=== PATIENT | male | born 1955 | race Caucasian/White ===

== ENCOUNTER 2017-04-07 16:36 | Observation (INO) ==
[2017-04-07] MEDS ORDERED: MAGNESIUM SULF RIDER 4 GM in PREMIX 1 EACH IV PRN (17:29)
[2017-04-07] MEDS ORDERED: ACETAMINOPHEN 325 MG TABLET PO PRN (17:29)
[2017-04-07] MEDS ORDERED: MAGNESIUM SULF RIDER 2 GM in PREMIX 1 EACH IV PRN (17:29)
[2017-04-07] MEDS ORDERED: ONDANSETRON 4 MG/2 ML VIAL IV PRN (17:29)
--- NOTE | 2017-04-07 17:33 | Emergency Department Note ---
Rekha Cool Hilary, am scribing for, and in the presence of, Farzad Price MD 17:23. Dee Cool Phillip K, MD, personally performed the services described in this documentation, ascribed by Padma Da Silva in my presence, and it is both accurate and complete [id number] . Arrival - Arrival Chief Complaint: Chest Pain Stated Complaint: TRANSFER FROM [facility] CP ED Nursing Triage Note: PT TRANSFERRED FROM [facility] FOR EVALUATION OF POSSIBLE TIA. PT PRESENTED WITH CHEST PAIN AND SOB. WHILE IN ER AT [facility] PT HAD EPISODE OF CONFUSION AND VOMITING. CT BRAIN WAS DONE. PT IS CURRENTLY AAO WITH NO COMPLAINTS. Mode of Arrival: Stretcher Limitations: No Limitations Source: Patient, RN Notes Reviewed - History of Present Illness HPI Narrative: Pt is a 62 y/o male brought into the ED via EMS from [facility] ER for evaluation of possible TIA. Per EMS pt went to [facility] with c/o chest pain and SOB and then while there had a episode of confusion and vomiting. Pt confirms nausea, SOB, vomiting, confusion, dizziness, midsternal tightness in chest, fever, diaphoresis but denies cough. Pt has a PMHx of GERD. No other complaints or problems stated in the ED. Onset (ago): hour(s) Consistency: now resolved Allergies/Adverse Reactions: Allergies Allergy/AdvReac Type Severity Reaction Status Date / Time No Known Allergies Allergy Verified 04/07/17 16:50 Home Medications: Home Medications Medication Instructions Recorded Confirmed Type No Known Home Medications [No 04/07/17 04/07/17 History Known Home Medications] Review of System - Review of System 12 point system: reviewed and no additional remarkable complaints except as stated - Review of System Constitutional: Present: diaphoresis, fever (subjective) Respiratory: Present: respiratory distress (SOB) Cardiovascular: Present: chest pain (slight tightness) Gastrointestinal: Present: nausea, vomiting Neurological: Present: confusion Medical,Surgical,& Family Hx - Medical History Gastrointestinal: History of: GERD - Social History Smoking Status: Smoker, status unknown Frequency of Alcohol Use: Unknown Type of Drug Use: None Exam Vital Signs: Vital Signs Temperature 97.7 F 04/07/17 16:36 Pulse Rate 59 L 04/07/17 16:36 Respiratory Rate 18 04/07/17 16:36 Blood Pressure 142/77 04/07/17 16:36 O2 Sat by Pulse Oximetry 100 04/07/17 16:36 - General General appearance: alert, in no apparent distress - Head Head exam: Present: atraumatic, normocephalic - Eye Eye exam: Present: normal appearance, PERRL, EOMI - ENT ENT exam: Present: mucous membranes moist, TM's normal bilaterally. Absent: mucous membranes dry - Neck Neck exam: Present: full ROM, trachea midline. Absent: tenderness - Chest Chest inspection: Present: symmetric chest wall rise. Absent: tenderness - Respiratory Respiratory exam: Present: normal lung sounds bilaterally. Absent: respiratory distress - Cardiovascular Cardiovascular exam: Present: regular rate, normal rhythm, normal heart sounds. Absent: murmur, rubs, gallop - Abdominal Exam Abdominal exam: Present: soft, normal bowel sounds. Absent: distention, tenderness - Extremities Exam Extremities exam: Present: full ROM. Absent: tenderness - Back Exam Back exam: Present: full ROM. Absent: tenderness - Neurological Exam Neurological exam: Present: alert, oriented X3, CN II-XII intact. Absent: motor sensory deficit - Psychiatric Psychiatric exam: Present: normal affect, normal mood - Skin Skin exam: Present: warm, dry, intact, normal color. Absent: rash Course Course Narrative: Patient discussed with Dr. Pond. Disposition Clinical Impression: Chest pain, Possible unstable angina, Tobacco abuse Case discussed with: patient Disposition: Still a Patient Condition: Guarded Additional Instructions: Admit to Dr. Pond
[2017-04-07] MEDS: ENOXAPARIN 80 MG/0.8 ML SYRINGE SUBCUT SCH (17:45)
[2017-04-07 20:54] LABS: Troponin I Only < 0.015 NG/ML (0.00-0.045)
[2017-04-08] MEDS: ENOXAPARIN 80 MG/0.8 ML SYRINGE SUBCUT SCH (06:48)
[2017-04-08 07:15] LABS: Basophils % 0.2 % (0.0-0.8); Eosinophils # 0.1 10*3/uL (0.0-0.87); Eosinophils % 1.1 % (0.00-10.9); Hematocrit 40.6 VOL% (42.0-52.0); Hemoglobin 13.5 GM/DL (14.0-18.0); Immature Granulocytes % 0.3 %; Immature Granulocytes Absolute 0.03 #; Lymphocytes # 2.5 10*3/uL (1.4-4.0); Lymphocytes % 27.2 % (21.2-54.2); Mean Corpuscular HGB Conc 33.3 GM/DL (32-36); Mean Corpuscular Hemoglobin 29 PG (27-34); Mean Corpuscular Volume 88.3 FL (87-102); Mean Platelet Volume 11.4 FL (9.6-12.0); Monocytes # 0.7 10*3/uL (0.11-0.8); Monocytes % 7.3 % (1.7-12.7); Neutrophils # 5.9 10*3/uL (1.4-7.4); Neutrophils % 63.9 % (38.7-73.9); Platelet Count 247 T/CUMM (130-400); Red Cell Distribution Width 13.8 % (9.3-17.3); White Blood Count 9.2 T/CUMM (4-12)
--- NOTE | 2017-04-08 07:33 | EKG Report ---
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
[2017-04-08 07:48] LABS: Troponin I Only < 0.015 NG/ML (0.00-0.045)
[2017-04-08 07:51] LABS: Calcium 8.4 MG/DL (8.5-10.1); Free T4 (Free Thyroxine) 1.05 NG/DL (0.76-1.46); Magnesium 2.2 MG/DL (1.8-2.4); Osmolality,Calculated 287.6 MOS/KG (273-304); Potassium 4.1 MMOL/L (3.5-5.1); Thyroid Stimulating Hormone 1.08 uIU/ml (0.358-3.74)
[2017-04-08 07:58] LABS: Risk Ratio 6.9; VLDL CHOLESTEROL 28.8 MG/DL
[2017-04-08 11:51] VITALS: BP 124/65
--- NOTE | 2017-04-08 14:32 | EKG Report ---
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
--- NOTE | 2017-04-08 15:20 | Cardiology History & Physical ---
Kevin Cool April RN, am scribing for, and in the presence of, Magan Willingham MD 15 :09. Assessment and Plan - Time spent with patient Time spent with patient: Greater than 30 minutes (Due to assessment, planning, documentation, medication review) (1) Chest pain Status: Acute Assessment and plan: 62-year-old male, presenting with chest pain, suggestive of angina. Outside facility also mentions change in mental status, but she does not recall. He is currently without any neurological deficits. Hyperlipidemia, smoker. -We will proceed with a cardiac stress test. -We will need to increase his statin, LDL >160 -ASA -BB -GI workup, if cardiac workup unrevealing this may be pursued as an outpatient, he did not have high-risk findings -Cardiac Rehab consult for smoking cessation Current Visit: Yes (2) Tobacco abuse Status: Chronic Current Visit: Yes History of Present Illness Chief complaint: Chest pain History of present illness: Kaiako Kura [place]: Dr. Willingham, new to cardiology Primary MD: Dr. Tillman Mr. 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 He has a history of GERD and elevated cholesterol. His only home med is a cholesterol medication, but he is not sure what it is. He reports that he refuses statins because of potential side effects. Surgical history includes tonsillectomy. Family history is positive for father with cancer. He does smoke, reports he was smoking 1 pack a day, but recently cut back to less than half a pack a day. He lives at home with his and is very active. He reports he was in his usual state of health until around lunchtime yesterday when he began to get dizzy, diaphoretic, had nausea and vomiting, and shortness of breath at rest. He reports shortly after the start he began to have chest tightness in the center of his chest that he rates as a 5 on a scale of 1-10. He reports that it was not a constant pain and denies any radiation to his back , neck, jaw, or arms. He noted no specific triggers or alleviators. All of the above symptoms happened while at rest. He states the symptoms started while he was standing beside his truck, he sat down, and the symptoms continued. He had a friend who gave him a sublingual nitroglycerin, this did not seem to help. After approximately an hour he presented to [facility] ER for further evaluation. There he was given a 325 mg aspirin and GI cocktail. He says the pain went away shortly after taking this, and he has had no pain since. He had CT of the head without contrast done at [facility] that showed no acute hemorrhage infarction or mass effect. Cardiac biomarkers done the [facility] were negative. EKG done showed normal sinus rhythm with heart rate of 67. Mr. Berry is currently resting in bed in no acute distress. He denies any chest pain, shortness of breath, palpitations, or dizziness. He is able to move all extremities and denies any weakness. He states he is back to his normal state of health. 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 Cardiac biomarkers have been negative 2 at our facility. Home Medications Medication Instructions Recorded Confirmed Type No Known Home Medications [No 04/07/17 04/07/17 History Known Home Medications] Allergies Allergy/AdvReac Type Severity Reaction Status Date / Time No Known Allergies Allergy Verified 04/07/17 16:50 - Constitutional Constitutional: Present: as per HPI - EENT Eyes: Present: requires corrective lense. Absent: blurry vision Ears: Present: tinnitus. Absent: decreased hearing, ear pain Nose, mouth and throat: Absent: dysphagia, epistaxis, headache(s), neck pain - Cardiovascular Cardiovascular: Present: chest pain at rest, dyspnea, lightheadedness. Absent: chest pain with activity, edema, radiating jaw, neck or arm pain, orthopnea, palpitations - Respiratory Respiratory: Present: dyspnea. Absent: cough, hemoptysis, wheezing - Gastrointestinal Gastrointestinal: Present: diarrhea, nausea, vomiting. Absent: abdominal pain, constipation, hematemesis, hematochezia, melena - Genitourinary Genitourinary: Absent: dysuria, hematuria - Musculoskeletal Musculoskeletal: Absent: back pain, limited range of motion, muscle weakness - Neurological Neurological: Present: dizziness. Absent: confusion, frequent falls, headache(s ), syncope - Psychiatric Psychiatric: Absent: anxiety, depression - Endocrine Endocrine: Absent: cold intolerance, fatigue, heat intolerance - Hematologic/Lymphatic Hematologic/Lymphatic: Absent: easy bleeding, easy bruising Medical,Surgical,& Family Hx - Medical History Endocrine: History of: Dyslipidemia Gastrointestinal: History of: GERD - Surgical History HEENT Surgeries: Surgical HX of: Tonsilectomy & Adenoidectomy - Family History Family History: Reports;: Family Cancer (Father) - Social History Smoking Status: Current every day smoker (Smokes half a pack a day) Have you smoked in the last 12 months: Yes Time spent discussing smoking cessation with patient: 3 to 10 minutes Frequency of Alcohol Use: None Type of Drug Use: None Marital Status: Lives With:: Spouse Functional capacity: independent ambulation Cardiology Physical Exam - Constitutional Vitals: Vital Signs Temp Pulse Resp BP Pulse Ox 98.8 F 60 20 126/80 95 04/08/17 07:43 04/08/17 07:43 04/08/17 07:43 04/08/17 07:43 04/08/17 07:43 Intake and Output 04/07/17 04/08/17 04/08/17 22:59 06:59 14:59 Intake Total 120 / 120 0 / 0 Output Total 0 / 0 Balance 120 / 120 0 / 0 Intake: Oral 120 / 120 0 / 0 Output: Urine 0 / 0 Other: Voiding Method Toilet # Voids 1 # Bowel Movements 0 0 Weight 180 lb General appearance: normal weight, no acute distress - Head Head exam: Absent: abrasion, hematoma, laceration - Eye Pupils: Present: SAMMY - Neck Neck exam: Absent: tenderness, thyromegaly - Respiratory Respiratory exam: Present: clear to auscultation bilaterally. Absent: accessory muscle use, chest wall tenderness - Cardiovascular Cardiovascular exam: Present: bradycardia, regular rate and rhythm. Absent: diastolic murmur, systolic murmur - GI/Abdominal GI/Abdominal exam: Present: normal bowel sounds, soft. Absent: distended, tenderness - Extremities Exam Extremities exam: Absent: calf tenderness, edema - Neurological Exam Neurological exam: Present: alert, oriented X3 - Psychiatric Psychiatric exam: Present: normal affect, normal mood - Skin Skin exam: Present: warm, dry Result/EKG - Labs CBC & BMP: 04/08/17 06:53 04/08/17 06:53 Lab Results: I have reviewed the past 24 hour labs Labs: Laboratory Results - last 24 hr 04/07/17 04/08/17 04/08/17 20:05 06:53 06:53 WBC 9.2 RBC 4.60 Hgb 13.5 L Hct 40.6 L MCV 88.3 MCH 29 MCHC 33.3 RDW 13.8 Plt Count 247 MPV 11.4 Neut % (Auto) 63.9 Lymph % (Auto) 27.2 Moffat % (Auto) 7.3 Eos % (Auto) 1.1 Baso % (Auto) 0.2 Neut # (Auto) 5.9 Lymph # (Auto) 2.5 Moffat # (Auto) 0.7 Eos # (Auto) 0.1 Baso # (Auto) 0.0 Immature Gran % 0.3 Nucleated RBC % 0.0 Immature Gran # 0.03 Nucleated RBCs # 0.00 D-Dimer, Quantitative <= 0.5 Sodium Potassium Chloride Carbon Dioxide Anion Gap BUN Creatinine GFR Calculation BUN/Creatinine Ratio Glucose Calculated Osmolality Calcium Magnesium Total Creatine Kinase 49 CK-MB (CK-2) < 1.0 Troponin I < 0.015 Free T4 TSH 3rd Generation 04/08/17 04/08/17 06:53 06:58 WBC RBC Hgb Hct MCV MCH MCHC RDW Plt Count MPV Neut % (Auto) Lymph % (Auto) Moffat % (Auto) Eos % (Auto) Baso % (Auto) Neut # (Auto) Lymph # (Auto) Moffat # (Auto) Eos # (Auto) Baso # (Auto) Immature Gran % Nucleated RBC % Immature Gran # Nucleated RBCs # D-Dimer, Quantitative Sodium 146 H Potassium 4.1 Chloride 113 H Carbon Dioxide 24 Anion Gap 13.1 BUN 9 Creatinine 1.20 GFR Calculation 75 BUN/Creatinine Ratio 7.00 Glucose 89 Calculated Osmolality 287.6 Calcium 8.4 L Magnesium 2.2 Total Creatine Kinase 40 CK-MB (CK-2) < 1.0 Troponin I < 0.015 Free T4 1.05 TSH 3rd Generation 1.080 - EKG EKG results: interpreted by me EKG shows: bradycardia, sinus rhythm Maulik Cool Attila, MD, personally performed the services described in this documentation, ascribed by India Brown RN in my presence, and it is both accurate and complete [id number] .
[2017-04-08] MEDS ORDERED: ASPIRIN EC 81 MG TABLET PO SCH (15:30)
--- NOTE | 2017-04-08 15:34 | Event Note ---
Patient underwent stress testing this afternoon with completion of Full Benny protocol. THR achieved. He had no chest pain, heaviness, or tightness. Significant ST depression noted anterolaterally. Appropriate blood pressure response. Now, patient is being transitioned to nuclear medicine for final scan. Dr. Willingham to read, interpret, and advise.
[2017-04-08 16:55] LABS: Troponin I Only < 0.015 NG/ML (0.00-0.045)
--- NOTE | 2017-04-08 16:55 | Discharge Summary ---
Kevin Cool April RN, am scribing for, and in the presence of, Sia Pickett NP 16:55. <Sia Pickett - Last Filed: 04/08/17 16:54> Hospital Course - Hospital Course Hospital Course: Mr. 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 He has a history of GERD and elevated cholesterol. His only home med is a cholesterol medication, but he is not sure what it is. He reports that he refuses statins because of potential side effects. Surgical history includes tonsillectomy. Family history is positive for father with cancer. He does smoke, reports he was smoking 1 pack a day, but recently cut back to less than half a pack a day. He lives at home with his and is very active. He reports he was in his usual state of health until around lunchtime yesterday when he began to get dizzy, diaphoretic, had nausea and vomiting, and shortness of breath at rest. He reports shortly after the start he began to have chest tightness in the center of his chest that he rates as a 5 on a scale of 1-10. He reports that it was not a constant pain and denies any radiation to his back , neck, jaw, or arms. He noted no specific triggers or alleviators. All of the above symptoms happened while at rest. He states the symptoms started while he was standing beside his truck, he sat down, and the symptoms continued. He had a friend who gave him a sublingual nitroglycerin, this did not seem to help. After approximately an hour he presented to [facility] ER for further evaluation. There he was given a 325 mg aspirin and GI cocktail. He says the pain went away shortly after taking this, and he has had no pain since. He had CT of the head without contrast done at [facility] that showed no acute hemorrhage infarction or mass effect. Cardiac biomarkers done the [facility] were negative. EKG done showed normal sinus rhythm with heart rate of 67. Mr. Berry has been pain-free since admission. Because of risk factors, he underwent nuclear stress testing. Stress test was low risk for cardiac ischemia. He has met maximum benefit from hospitalization and will be discharged home today. Because of elevated cholesterol we will start him on Crestor 20 mg daily. Will also start him on Protonix 40 mg daily. We will schedule follow-up with his primary doctor who is Dr. Tillman in 2 weeks. - Time spent with patient Time with patient DS: Less than 30 minutes Time spent discussing smoking cessation with patient: 3 to 10 minutes Diagnosis - Discharge Diagnosis (1) Chest pain Status: Resolved (2) Tobacco abuse Status: Chronic Specialty Discharge - Follow Up or Referrals Follow up with: France Tillman M.D. [Physician] - 2 Weeks Discharge Plan - Discharge Data Disposition: Disch To Home/Self Care Condition at Discharge: Stable Discharge Diet: heart healthy Activity: resume usual activities as tolerated Hygiene: no restrictions Weight Bearing at Discharge: weight bear as tolerated Driving: no restrictions Contact your physician if you experience:: fever over 101, Difficulty voiding, Redness or swelling, Nausea/Vomiting, Shortness of breath, Bleeding, pain uncontrolled by pain medications - Discharge Medications New Pantoprazole Tab [Protonix Tab] 40 mg PO DAILY #30 tablet Aspirin EC Tab 81 mg PO DAILY tablet Rosuvastatin [Crestor] 20 mg PO DAILY #30 tablet - Follow Up or Referral Follow Up: France Tillman M.D. [Physician] - 2 Weeks - Forms/Instructions Instructions: Cigarette Smoking and Your Health (GEN), Acute Coronary Syndrome Exam - Constitutional Vitals: Period Temp Pulse Resp BP Sys/Carvajal Pulse Ox Last 24 Hr 98.1 F-99.1 F 60-60 18-20 115-126/60-80 95-98 Exam: General appearance: normal weight, no acute distress - Head Head exam: Absent: abrasion, hematoma, laceration - Eye Pupils: Present: SAMMY - Neck Neck exam: Absent: tenderness, thyromegaly - Respiratory Respiratory exam: Present: clear to auscultation bilaterally. Absent: accessory muscle use, chest wall tenderness - Cardiovascular Cardiovascular exam: Present: bradycardia, regular rate and rhythm. Absent: diastolic murmur, systolic murmur - GI/Abdominal GI/Abdominal exam: Present: normal bowel sounds, soft. Absent: distended, tenderness - Extremities Exam Extremities exam: Absent: calf tenderness, edema - Neurological Exam Neurological exam: Present: alert, oriented X3 - Psychiatric Psychiatric exam: Present: normal affect, normal mood - Skin Skin exam: Present: warm, dry Discharge Results Procedures and tests throughout hospitalization: Pending Orders 04/08/17 13:35 NM sabrina perf SPECT rest or str Routine Labs on day of discharge: Labs from last 24 hours 04/08/17 04/08/17 04/08/17 16:11 06:58 06:53 WBC RBC Hgb Hct MCV MCH MCHC RDW Plt Count MPV Neut % (Auto) Lymph % (Auto) Nye % (Auto) Eos % (Auto) Baso % (Auto) Neut # (Auto) Lymph # (Auto) Nye # (Auto) Eos # (Auto) Baso # (Auto) Immature Gran % Nucleated RBC % Immature Gran # Nucleated RBCs # D-Dimer, Quantitative Sodium 146 H Potassium 4.1 Chloride 113 H Carbon Dioxide 24 Anion Gap 13.1 BUN 9 Creatinine 1.20 GFR Calculation 75 BUN/Creatinine Ratio 7.00 Glucose 89 Calculated Osmolality 287.6 Calcium 8.4 L Magnesium 2.2 Total Creatine Kinase 53 D 40 CK-MB (CK-2) < 1.0 < 1.0 Troponin I < 0.015 < 0.015 Triglycerides Cholesterol LDL Cholesterol VLDL Cholesterol HDL Cholesterol Heart Disease Risk Ratio Free T4 1.05 TSH 3rd Generation 1.080 04/08/17 04/08/17 04/08/17 06:53 06:53 06:53 WBC 9.2 RBC 4.60 Hgb 13.5 L Hct 40.6 L MCV 88.3 MCH 29 MCHC 33.3 RDW 13.8 Plt Count 247 MPV 11.4 Neut % (Auto) 63.9 Lymph % (Auto) 27.2 Nye % (Auto) 7.3 Eos % (Auto) 1.1 Baso % (Auto) 0.2 Neut # (Auto) 5.9 Lymph # (Auto) 2.5 Nye # (Auto) 0.7 Eos # (Auto) 0.1 Baso # (Auto) 0.0 Immature Gran % 0.3 Nucleated RBC % 0.0 Immature Gran # 0.03 Nucleated RBCs # 0.00 D-Dimer, Quantitative <= 0.5 Sodium Potassium Chloride Carbon Dioxide Anion Gap BUN Creatinine GFR Calculation BUN/Creatinine Ratio Glucose Calculated Osmolality Calcium Magnesium Total Creatine Kinase CK-MB (CK-2) Troponin I Triglycerides 144 Cholesterol 214 H LDL Cholesterol 161.0 VLDL Cholesterol 28.8 HDL Cholesterol 31 L Heart Disease Risk Ratio 6.90 Free T4 TSH 3rd Generation 04/07/17 20:05 WBC RBC Hgb Hct MCV MCH MCHC RDW Plt Count MPV Neut % (Auto) Lymph % (Auto) Nye % (Auto) Eos % (Auto) Baso % (Auto) Neut # (Auto) Lymph # (Auto) Nye # (Auto) Eos # (Auto) Baso # (Auto) Immature Gran % Nucleated RBC % Immature Gran # Nucleated RBCs # D-Dimer, Quantitative Sodium Potassium Chloride Carbon Dioxide Anion Gap BUN Creatinine GFR Calculation BUN/Creatinine Ratio Glucose Calculated Osmolality Calcium Magnesium Total Creatine Kinase 49 CK-MB (CK-2) < 1.0 Troponin I < 0.015 Triglycerides Cholesterol LDL Cholesterol VLDL Cholesterol HDL Cholesterol Heart Disease Risk Ratio Free T4 TSH 3rd Generation - Imaging and Cardiology Cardiology Procedure: report reviewed by me DS: Provider Consults: 04/08/17 15:08 Consult to Cardiac Rehabilitation [CONS] Routine 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 Discussed findings with the nurse practitioner. I agree with the assessment and plan, with additions as below. He will follow-up with his primary care physician. Chest pain was likely musculoskeletal or GI in origin. Diagnosis - Discharge Diagnosis (1) Chest pain Status: Resolved (2) Tobacco abuse Status: Chronic Piyush Cool Lauren E, NP, personally performed the services described in this documentation, ascribed by India Brown RN in my presence, and it is both accurate and complete [id number] .
--- NOTE | 2017-04-08 20:38 | Nuclear Medicine Report ---
EXERCISE STRESS TEST Stress test interpreted by Dr. Magan Willingham. INDICATION: Chest pain. PROCEDURE: At rest, 10 mCi of 99-Technetium labeled Sestamibi was injected and rest images were obtained. The patient exercise according to the Benny treadmill stress protocol. At peak stress, 30 mCi of 99-Technetium labeled Sestamibi was injected and post-stress images were obtained. FINDINGS: At rest, sinus rhythm, without significant repolarization changes, 53 beats per minute. Rest blood pressure was 139/84 mmHg. The patient exercise for 9 minutes and 69 seconds, achieving a peak heart rate of 162 beats per minute, 96% of the maximum predicted heart rate. The blood pressure yara to 166/80 mmHg. At peak stress, there is [address] depression in II, III and aVF and V, , resolving with rest. There was no chest pain. Occasional PVCs. Rest and post stress gated and perfusion images were obtained. The end-diastolic volume is 90 cc, the end-systolic volume is 36 cc, the calculated left ventricular ejection fraction is 61%. There are no focal wall motion abnormalities. There is a moderate size area of mildly decreased activity both on the stress and rest images, in the inferior apical region without corresponding wall motion abnormalities. This is consistent with imaging artifacts. There are motion artifacts on both rest and post stress images. CONCLUSIONS: 1. CLINICALLY AND ELECTRICALLY NEGATIVE SUBMAXIMAL TREADMILL STRESS. NICHOLS TREADMILL TEST SCORE 10. 2. IMAGING SUGGESTING NORMAL VENTRICULAR SIZE END-SYSTOLIC FUNCTION, THERE IS NO EVIDENCE OF OLD MYOCARDIAL DISEASE OF ISCHEMIA. 3. THIS IS A LOW RISK TEST. Procedure performed and interpreted at [facility] Department of Radiology. [facility]
[2017-04-08] MEDS ORDERED: METOPROLOL TARTRATE 25 MG TABLET PO SCH (21:00)
[2017-04-08] MEDS ORDERED: SIMVASTATIN 40 MG TABLET PO SCH (21:00)
[2017-04-09] MEDS ORDERED: PANTOPRAZOLE 40 MG TABLET PO SCH (09:00)
[2017-04-09] MEDS ORDERED: ROSUVASTATIN 20 MG TABLET PO SCH (09:00)
== END 2017-04-08 17:52 | disposition home or self-care (01) ==
LOC: EDBD → EDUNIT# → N.EDINP 16:36 → N.ED 16:36 → N.TELES 18:50
PROVIDERS: ADMIT Internal Medicine Cardiovascular Disease; ATTEND Internal Medicine Cardiovascular Disease